=== PATIENT | female | born 1975 | race Caucasian/White ===

== ENCOUNTER → 2016-11-29 | Outpatient (CLI) | payer OTHER | LOC: BMCIMAGING 15:01 | PROVIDERS: ATTEND Physician Assistant Medical | DX: M25.462 Effusion, left knee (principal) ==

== ENCOUNTER → 2017-06-09 | Outpatient (CLI) | payer OTHER | LOC: FIMAGING 08:46 | PROVIDERS: ATTEND Obstetrics & Gynecology | DX: Z12.31 Encounter for screening mammogram for malignant neoplasm of breast (principal) | CPT/HCPCS: G0202 ==

== ENCOUNTER → 2017-06-20 | Outpatient (CLI) | payer OTHER | LOC: FIMAGING 11:03 | PROVIDERS: ATTEND Obstetrics & Gynecology | DX: N60.02 Solitary cyst of left breast (principal) ==

== ENCOUNTER → 2018-06-23 | Outpatient (CLI) | payer OTHER | LOC: FIMAGING 16:07 | PROVIDERS: ATTEND Obstetrics & Gynecology | DX: Z12.31 Encounter for screening mammogram for malignant neoplasm of breast (principal) ==